=== PATIENT | female | born 1990 | race Caucasian/White ===

== ENCOUNTER 2022-03-11 16:57 | Emergency (ER) | payer BC ==
[~2022-03-11] VITALS: Ht 165.1 cm; Wt 104.5 kg
[2022-03-11 17:05] VITALS: BP 148/86
[2022-03-11] MEDS ORDERED: PHEN-786 PO (17:18)
[2022-03-11] MEDS ORDERED: CIPR-260 PO (17:18)
[2022-03-11 17:45] LABS: URINE HCG NEGATIVE (NEG)
[2022-03-11 17:47] LABS: COLOR,URINE ORANGE (Yellow); UA COLLECTION TYPE CLN CATCH MIDSTREAM
[2022-03-11 17:48] LABS: CLARITY,URINE Turbid (Clear)
[2022-03-11 17:57] LABS: RBC,URINE TNTC /HPF (0-2); WBC,URINE 50-100 /HPF (0-4)
[2022-03-11 17:58] LABS: BACTERIA,URINE 4+ /HPF (Neg); MUCUS STRANDS FEW /LPF (Neg); SQUAMOUS EPITHELIAL CELL,UR MODERATE /LPF (FEW); WBC CLUMPS,URINE FEW /HPF (NEGATIVE)
== END 2022-03-11 18:06 | disposition home or self-care (01) ==
LOC: ER 16:58
DX: N39.0 Urinary tract infection, site not specified (principal)
CPT/HCPCS: 81001; 81025; 87077; 87088; 87186; 99283